=== PATIENT | female | born 1940 ===

== ENCOUNTER 2022-11-26 14:00 | Outpatient (REF) | payer SELFPAY ==
[2022-11-26 21:39] LABS: Bilirubin Negative (Negative); Blood Trace-lysed (Negative); Clarity Sl Cloudy (Clear); Glucose Negative (Negative); Ketones Trace mg/dL (Negative); Leukocyte Esterase Small (Negative); Nitrite Positive (Negative); Urobilinogen 0.2 mg/dL (Up to 0.2); pH 5.5 (5-8)
[2022-11-26 21:42] LABS: Bacteria Moderate HPF (Negative); C & S Indicated? Yes; Casts Negative LPF (Negative); Crystals Negative HPF (Negative); Epithelial Cells Rare HPF (Negative); Mucus Negative (Negative); RBC 0-2 HPF (0-2); WBC >50 HPF (0-5)
--- OUTSIDE RECORDS SUMMARY | 2022-11-27 15:41 | XMS_ITS | CCD ---
Author Name Unknown Address [address] [place] [address] [phone] Organization Unknown Address [address] [place] [address] [phone] Care Team Providers Care Boat Buffer Plastic Name Role Phone HEATHER ESTEVES Attending Physician [phone] HEATHER ESTEVES Rounding (Secondary) Physician [phone] Vital Signs Unknown or Not Available. Allergies Allergy Code Allergy Type Reaction Status CELEBREX {Clinical monitoring unavailable} 0 Drug allergy GI UPSET Active AMOXICILLIN 723 Drug allergy RASH Active FELDENE {Clinical monitoring unavailable} 0 Drug allergy RASH Active TAPE 0 Allergy to substance RASH Acti ve ARTHRITIS MEDS {Clinical mon itoring unavailable} 0 Drug allergy RED SKIN Active Procedures Unknown or Not Available. History of Immunizations Unknown or Not Available. Problems Problem Code Start Date Resolved Date Status Multiple subsegmental pulmon jose luis emboli without acute cor pulmonale [id number] Acti ve Fracture of right ankle, sequela [id number] Active Results Unknown or Not Available. Active Medications Medication Code Dose Units Frequency Route Modificatio n Start Date/Time Eliquis 30 Day DVT/PE Starter Pack 5MG Oral Tablet [id number] 1 TABLET DAILY ORAL 08/2022 10:52 Prescription Detail TAKE 1 TABLET ORAL D AILY hydroCHLOROthiazide 12.5MG Oral Capsule 12.5 MILLIGRAMS DAILY ORAL 09/03/2022 10:50 Prescription Detail TAKE 12.5 MILLIGRAMS ORAL DAILY Klor-Con M20 20MEQ Oral Tablet, Extended Release [id number] 1 TABLET DAILY ORAL 08/2022 10:50 Prescription Detail TAKE 1 TABLET ORAL D AILY Ocuvite PreserVision 113MG-0.4MG-7160IU- 1 Oral Tablet [id number] 1 EACH BEDTIME ORAL 2022 10:50 Prescription Detail TAKE 1 EACH ORAL BED TIME Medications Administered During Visit Unknown or Not Available. Encounters Encounter Diagnosis Diagnosis Code Start Date Other fracture of upper and lower end of right fibula, initial encounter for closed fracture [id number] 08/11/2022 Social History Smoking Status Code Start Date End Date Never smoker [id number] Patient Decision Aids Unknown or Not Available. Discharge Instructions You were admitted to [facility] on 08/11/2022 09:43 with a principal diagnosis of Other fracture of upper and lower end of right fibula, initial encounter for closed fracture You were discharged from [facility] on 08/11/2022 00:00 Should you have any questions prior to discharge, please contact a member of your healthcare team. If you have left the hospital and have any questions, please contact your primary care physician. Chief Complaint and Reason For Visit Unknown or Not Available. Function Status Unknown or Not Available. Plan of Care Unknown or Not Available. Referral/Transition of Care Unknown or Not Available.
--- OUTSIDE RECORDS SUMMARY | 2022-11-27 15:41 | XMS_ITS | CCD ---
Author Name Unknown Address [address] [place] [address] [id number] Organization Unknown Address [address] [place] [address] [id number] Care Team Providers Care Motor Vehicle Assembler Name Role Phone HEATHER ESTEVES Attending Physician [phone] HEATHER ESTEVES Rounding (Secondary) Physician [phone] Vital Signs Unknown or Not Available. Allergies [...] jose luis emboli without acute cor pulmonale [id number] Acti ve Fracture of right ankle, sequela 218320109 Active Results Unknown or Not Available. Active Medications Medication Code Dose Units Frequency Route Modificatio n Start Date/Time Eliquis 30 Day DVT/PE Starter Pack 5MG Oral Tablet [id number] 1 TABLET DAILY ORAL 08/2022 10:52 Prescription Detail TAKE 1 TABLET ORAL D AILY hydroCHLOROthiazide 12.5MG Oral Capsule 12.5 MILLIGRAMS DAILY ORAL 09/03/2022 10:50 Prescription Detail TAKE 12.5 MILLIGRAMS ORAL DAILY Klor-Con M20 20MEQ Oral Tablet, Extended Release [id number] 1 TABLET DAILY ORAL 08/2022 10:50 Prescription Detail TAKE 1 TABLET ORAL D AILY Ocuvite PreserVision 113MG-0.4MG-7160IU- 1 Oral Tablet 123522 1 EACH BEDTIME ORAL 2022 10:50 Prescription Detail TAKE 1 EACH ORAL BED TIME Medications Administered During Visit Unknown or Not Available. Encounters Encounter Diagnosis Diagnosis Code Start Date Other fracture of upper and lower end of right fibula, subsequent encounter for closed fracture with routine healing [id number] 08/23/2022 Social History Smoking Status Code Start Date End Date Never smoker [id number] Patient Decision Aids Unknown or Not Available. Discharge Instructions You were admitted to [facility] on 08/23/2022 15:02 with a principal diagnosis of Other fracture of upper and lower end of right fibula, subsequent encounter for closed fracture with routine healing You were discharged from [facility] on 08/23/2022 00:00 Should you have any questions prior [...]
--- OUTSIDE RECORDS SUMMARY | 2022-11-27 15:41 | XMS_ITS | CCD ---
Author Name Unknown Address [address] [place] [address] [phone] Organization Unknown Address [address] [place] [address] [phone] Care Team Providers Care Dynamo Repairer Name Role Phone IVIS RICHARDSON Attending Physician [phone] IVIS RICAHRDSON Er Physician [phone] HO Green Registered Nurse [phone] Vital Signs Vital Sign Value Unit Date/Time Recent/Initial ? BMI (Body Mass Index) 27.8 kg/m^2 08/09/2022 17: 50 Initial VS Weight Measured 152 lbs 08/09/2022 17:50 Ini tial VS Height 62 in 08/09/2022 17:50 Initial VS BSA (Body Surface Area) 1.74 m^2 08/09/2022 1 7:50 Initial VS BP Systolic 140 mmHg 08/09/2022 17:50 Initial VS BP Diastolic 96 mmHg 08/09/2022 17:50 Initia l VS Respiratory Rate 19 bpm 08/09/2022 17:50 In itial VS Heart Rate 71 bpm 08/09/2022 17:50 Initial VS O2 % BldC Oximetry 97 % 08/09/2022 17:50 Initial VS Body Temperature 36.5 degrees 08/09/2022 17:50 In itial VS Allergies Allergy Code Allergy Type Reaction Status [...] jose luis emboli without acute cor pulmonale [id number] Acti ve Fracture of right ankle, sequela 532499787 Active Results Unknown or Not Available. Active Medications Unknown or Not Available. Medications Administered During Visit Medication Dose Units Frequency Route Date/Time of Last Dose ACETAMINOPHEN TABLET: 325MG 650 MG X1 PO 08/09/2022 19:22 Encounters Encounter Diagnosis Diagnosis Code Start Date Unspecified fracture of shaf t of right fibula, initial encounter for closed fracture [id number] 08/09/2022 Social History Smoking Status Code Start Date End Date Never smoker [id number] Patient Decision Aids Unknown or Not Available. Discharge Instructions You were admitted to [facility] on 08/09/2022 17:44 with a principal diagnosis of Unspecified fracture of shaft of right fibula, initial encounter for closed fracture You were discharged from [facility] on 08/09/2022 19:26 Should you have any questions prior to discharge, please contact a member of your healthcare team. If you have left the hospital and have any questions, please contact your primary care physician. Chief Complaint and Reason For Visit Chief Complaint Date of Onset RIGHT FOOT INJURY Function Status Unknown or Not Available. Plan of Care Unknown or Not Available. Referral/Transition of Care Unknown or Not Available.
--- OUTSIDE RECORDS SUMMARY | 2022-11-27 15:41 | XMS_ITS | Continuity of Care Document ---
Author Name Unknown Address [address] [place] [address] [id number] Phone Organization Address [address] [place] [address] [phone] Phone Care Team Providers Care Auto Body Estimator Name Role Phone PCP, of Choice Primary Care Provider JUDE Naranjo Attending Provider [phone] Social History Smoking Status Unknown if ever smoked Additional Data Assigned Sex Female Relevant Diagnostic Tests and/or Laboratory Data Laboratory Results Test Date/Time Result Interpretation Reference Range Result Comment Performing Site SARS-CoV -2 RNA (RT-PCR) January 15, 2022 8:45am Negative Negative Note: This RT-PCR assay is intended for the in vitro qualitative detection of nucleic acid from SARS-CoV-2.This test has not been FDA cleared or approved. This test has been authorized by the FDA under an Emergency Use Authorization (EUA) for use by authorized laboratories. Fact sheets for providers can be found at: [employer]gov/MyFitnessPal/ 2631/downloadFac t sheets for patients can be found at: [employer].com/MyFitnessPal/ 1853/download [facility] [id number] [address] [address] SARS-CoV -2 RNA (RT-PCR) January 17, 2022 6:00am Negative Negative Note: This RT-PCR assay is intended for the in vitro qualitative detection of nucleic acid from SARS-CoV-2.This test has not been FDA cleared or approved. This test has been authorized by the FDA under an Emergency Use Authorization (EUA) for use by authorized laboratories. Fact sheets for providers can be found at: [employer]gov/MyFitnessPal/ 4148/downloadFac t sheets for patients can be found at: [employer].gov/MyFitnessPal/ 4526/downloadNew reagent in use as of 01/15/2021. [facility] [id number] [address] [place] [address] Insurance Providers Guarantor BISHOP FLORES Address [address] [facility] [address] Contact Info. Home Phone: Payer Policy Id Coverage Id Subscriber's Name Subscriber Id Effective Date Expiration Date MEDICARE PART A AND B COVERAGE [id number] BISHOP FLORES [id number] Encounters Encounter Location(s) Arrival/Admit Date Discharge/Depart Date Provider(s) Departed Referred [facility] January 15, 2022 11:16am January 15, 2022 11:17am Cassandra Rey NP Departed Referred [facility] January 17, 2022 11:01am January 17, 2022 11:02am Cassandra Rey BREAD MOLDER
--- OUTSIDE RECORDS SUMMARY | 2022-11-27 15:41 | XMS_ITS | Continuity of Care Document ---
Author Name Unknown Address [address] [place] [address] 618[address] Phone Organization [facility] Address [address] [place] [address] 12768 Phone Care Team Providers Care Real Estate Valuer Name Role Phone PCP, of Choice Primary Care Provider JUDE Naranjo Attending Provider [phone] Social History Smoking Status Unknown if ever [...] sheets for providers can be found at: fda.gov/media/91 2357/downloadFa t sheets for patients can be found at: fda.gov/media/06 5374/download [facility] [id number] [address] [address] Encounters Encounter Location(s) Arrival/Admit Date Discharge/Depart Date Provider(s) Departed Referred [facility] January 15, 2022 11:16am January 15, 2022 11:17am Cassandra Rey NP
--- OUTSIDE RECORDS SUMMARY | 2022-11-27 15:42 | XMS_ITS | CCD ---
Author Name Unknown Address [address] [place] [address] [phone] Organization Unknown Address [address] [place] [address] [phone] Care Team Providers Care Painting Instructor Name Role Phone JOANN YOUNG Attending Physician [phone] JOANN YOUNG Er Physician 2 [phone] VICENTA Pate Registered Nurse [phone] Vital Signs Vital Sign Value Unit Date/Time Recent/Initial ? BMI (Body Mass Index) 30.18 kg/m^2 01/10/2022 21: 11 Initial VS Weight Measured 165 lbs 01/10/2022 21:11 Ini tial VS Height 62 in 01/10/2022 21:11 Initial VS BSA (Body Surface Area) 1.81 m^2 01/10/2022 2 1:11 Initial VS BP Systolic 177 mmHg 01/10/2022 21:11 Initial VS BP Diastolic 81 mmHg 01/10/2022 21:11 Initia l VS Respiratory Rate 18 bpm 01/10/2022 21:11 In itial VS Heart Rate 75 bpm 01/10/2022 21:11 Initial VS O2 % BldC Oximetry 94 % 01/10/2022 21:11 Initial VS Body Temperature 35.2 degrees 01/10/2022 21:11 In itial VS Body Temperature 35.5 degrees 01/10/2022 22:[address] Recent VS Respiratory Rate 16 bpm 01/10/2022 23:[address] Recent VS O2 % BldC Oximetry 97 % 01/10/2022 23:30 Most Recent VS BP Systolic 147 mmHg 01/10/2022 23:45 Most Re cent VS BP Diastolic 83 mmHg 01/10/2022 23:45 Most R ecent VS Heart Rate 74 bpm 01/10/2022 23:45 Most Rec ent VS Allergies Allergy Code Allergy Type Reaction Status CELEBREX {Clinical monitoring unavailable} 0 Drug allergy GI UPSET Active AMOXICILLIN 723 Drug allergy RASH Active FELDENE {Clinical monitoring unavailable} 0 Drug allergy RASH Active ARTHRITIS MEDS {Clinical monitoring unavailable} 0 Drug allergy RED SKIN Active Procedures Unknown or Not Available. History of Immunizations Unknown or Not Available. Problems Problem Code Start Date Resolved Date Status Multiple subsegmental pulmon jose luis emboli without acute cor pulmonale [id number] Acti ve Fracture of right ankle, sequela 327812762 Active HTN 19846280 01/10/2022 Resolved Results COMPREHENSIVE METABOLIC PANE L (CMP) - Collect Date/Time: 01/10/2022 22:45 Test Name Code Test Result Test Units Test Ref Rang e GLUCOSE 2345-7 115 mg/dL L=70 H=116 BUN 3094-0 27 mg/dL L=6 H=25 CREATININE 2160-0 0.59 mg/dL L=0.51 H=0.95 SODIUM SERUM 2951-2 146 mmol/L L=136 H=145 POTASSIUM SERUM 2823-3 3.1 mmol/L L=3.4 H=5 .2 CHLORIDE SERUM 2075-0 106 mmol/L L=96 H=110 CARBON DIOXIDE (CO2) 2028-9 31 mmol/L L=22 H=34 ANION GAP 46976-3 9.4 mmol/L CALCIUM SERUM 95051-5 9.4 mg/dL L=8.2 H=10. 2 BILIRUBIN TOTAL 1975-2 0.5 mg/dL L=0.0 H=1 .3 ALK. PHOS. 6768-6 79 U/L L=46 H=116 SGOT (AST) 1920-8 18 U/L L=15 H=37 SGPT (ALT) 1742-6 23 U/L L=12 H=78 TOTAL PROTEIN 2885-2 7.3 gm/dL L=6.0 H=8.0 ALBUMIN 1751-7 4.2 gm/dL L=3.4 H=5.0 AGE 81 years eGFR (non-Afr.Amer.) 61091-5 98 mL/min eGFR (Afr-Azerbaijani) 96161-7 119 mL/min TROPONIN HIGH SENSITIVITY* - Collect Date/Time: 01/10/2022 22:49 Test Name Code Test Result Test Units Test Ref Rang e TROPONIN HS 8.0 pg/mL L=0.0 H=60.4 Specimen seq. RANDOM N/A CBC W/ DIFFERENTIAL* - [facility] ct Date/Time: 01/10/2022 22:45 Test Name Code Test Result Test Units Test Ref Rang e WBC 6690-2 8.79 th/cmm L=5.00 H=10.00 NEUT % 75.2 % L=40.0 H=80.0 LYMPH % 13.8 % L=10.0 H=50.0 MONO % 49592-0 7.5 % L=2.0 H=12.0 EOS % 2.5 % L=0.0 H=8.0 BASO % 0.7 % L=0.0 H=3.0 IG % 2514-8 0.3 % L=0.0 H=1.1 NRBC % 44424-1 0.0 % L=0.0 H=0.0 NEUT abs count 751-8 6.6 th/cmm L=1.6 H=8. 4 LYMPH abs count 731-0 1.2 th/cmm L=1.5 H=4 .0 MONO abs count 742-7 0.7 th/cmm L=0.2 H=1. 0 EOS abs count 711-2 0.2 th/cmm L=0.0 H=0.5 BASO abs count 704-7 0.1 th/cmm L=0.0 H=0. 2 IG abs count 74514-3 0.0 th/cmm L=0.0 H=0.1 NRBC abs count 91660-4 0.0 mil/cmm L=0.0 H=0. 0 RBC 789-8 5.08 mil/cmm L=3.90 H=5.40 HEMOGLOBIN 718-7 14.9 gm/dL L=12.0 H=16.0 HEMATOCRIT 4544-3 45 % L=37 H=47 MCV 787-2 88 fL L=82 H=92 MCH 785-6 29.3 pg L=27.0 H=31.0 MCHC 786-4 33.3 % L=32.0 H=36.0 RDW-SD 788-0 43.1 fL L=39.0 H=49.0 PLATELET COUNT 777-3 328 th/cmm L=150 H=45 0 DAVINA COVID FLU RSV GENEXPE RT - Collect Date/Time: 01/10/2022 23:11 Test Name Code Test Result Test Units Test Ref Nadine branch COVID 96790-7 NEGATIVE N/A Normal: Negati ve INFLUENZA A DNA 63053-6 NEGATIVE N/A Normal: N egative INFLUENZA B DNA 89228-3 NEGATIVE N/A Normal: N egative RSV DNA 75567-1 NEGATIVE N/A Normal: Negati ve Active Medications Medications Administered During Visit Medication Dose Units Frequency Route Date/Time of Last Dose POTASSIUM CHL TABLET: 20mEq 40 MEQ X1 PO 01/10/2022 23:42 Encounters Encounter Diagnosis Diagnosis Code Start Date Traumatic subarachnoid hemor rhage without loss of consciousness, initial encounter [id number] 01/10/2022 Social History Smoking Status Code Start Date End Date Never smoker [id number] Patient Decision Aids Unknown or Not Available. Discharge Instructions You were admitted to [facility] on 01/10/2022 20:56 with a principal diagnosis of Traumatic subarachnoid hemorrhage without loss of consciousness, initial encounter You had the following tests done:[facility] [employer] MobileFLAKITA FLU RSV GENEXPERTTROPONIN HIGH SENSITIVITY*CBC W/ DIFFERENTIAL*COMPREHENSIVE METABOLIC PANEL (CMP) You were discharged from [facility] on 01/11/2022 00:09 Should you have any questions prior to discharge, please contact a member of your healthcare team. If you have left the hospital and have any questions, please contact your primary care physician. Chief Complaint and Reason For Visit Chief Complaint Date of Onset LEG INJURY Function Status Unknown or Not Available. Plan of Care Unknown or Not Available. Referral/Transition of Care Unknown or Not Available.
--- OUTSIDE RECORDS SUMMARY | 2022-11-27 15:42 | XMS_ITS | CCD ---
Author Name Unknown Address [address] [place] [address] [phone] Organization Unknown Address [address] [place] [address] [phone] Care Team Providers Care Radiation Therapy Technologist Name Role Phone PHOEBE STRONG Attending Physician [phone] Vital Signs Unknown or Not Available. Allergies [...] jose luis emboli without acute cor pulmonale [id number] Acti ve Fracture of right ankle, sequela 071511436 Active Results DAVINA COVID RHEONIX* - [place] ect Date/Time: 03/15/2022 10:16 Test Name Code Test Result Test Units Test Ref Rang e Tier- 64591-6 PRE-OP N/A SARS COV2 RNA: 79014-6 NEGATIVE N/A REFERENCE RANGE: NEGAT Active Medications Medication Code Dose Units Frequency Route Modificatio n Start Date/Time Eliquis 30 Day DVT/PE Starter Pack 5MG Oral Tablet [id number] 1 TABLET DAILY ORAL 08/2022 10:52 Prescription Detail TAKE 1 TABLET ORAL D AILY hydroCHLOROthiazide 12.5MG Oral Capsule 12.5 MILLIGRAMS DAILY ORAL 09/03/2022 10:50 Prescription Detail TAKE 12.5 MILLIGRAMS ORAL DAILY Klor-Con M20 20MEQ Oral Tablet, Extended Release [id number] 1 TABLET DAILY ORAL 08/2022 10:50 Prescription Detail TAKE 1 TABLET ORAL D AILY Ocuvite PreserVision 113MG-0.4MG-7160IU- 1 Oral Tablet 149538 1 EACH BEDTIME ORAL 2022 10:50 Prescription Detail TAKE 1 EACH ORAL BED TIME Medications Administered During Visit Unknown or Not Available. Encounters Encounter Diagnosis Diagnosis Code Start Date Pre-surgery testing [id number] 03/15/2022 Social History Smoking Status Code Start Date End Date Never smoker 391063160 Patient Decision Aids Unknown or Not Available. Discharge Instructions You were admitted to [facility] on 03/15/2022 16:43 with a principal diagnosis of Encounter for preprocedural laboratory examination You had the following tests done:DAVINA LAWSON RHEONIX* You were discharged from [facility] on 03/15/2022 16:43 Should you have any questions prior to [...]
--- OUTSIDE RECORDS SUMMARY | 2022-11-27 15:42 | XMS_ITS | CCD ---
Author Name Unknown Address [address] [place] [address] [id number] Organization Unknown Address [address] [place], [place] [id number] Care Team Providers Care Biomedical Equipment Support Specialist Name Role Phone ASH ROSALES Attending Physician [phone] IVIS RICHARDSON Er Physician [phone] IVIS RICHARDSON Rounding (Secondary) Physicia n [phone] H., TIA Registered Nurse [phone] P., BEL X Registered Nurse [phone] M., TENNILLE X Registered Nurse [phone] Vital Signs Vital Sign Value Unit Date/Time Recent/Initial ? BMI (Body Mass Index) 28.35 kg/m^2 09/02/2022 22: 58 Initial VS Weight Measured 155 lbs 09/02/2022 22:58 Ini tial VS Height 62 in 09/02/2022 22:58 Initial VS BSA (Body Surface Area) 1.75 m^2 09/02/2022 2 2:58 Initial VS BP Systolic 160 mmHg 09/02/2022 22:58 Initial VS BP Diastolic 77 mmHg 09/02/2022 22:58 Initia l VS Respiratory Rate 18 bpm 09/02/2022 22:58 In itial VS Heart Rate 67 bpm 09/02/2022 22:58 Initial VS O2 % BldC Oximetry 98 % 09/02/2022 22:58 Initial VS Body Temperature 36.6 degrees 09/02/2022 22:58 In itial VS BMI (Body Mass Index) 30.37 kg/m^2 09/03/2022 12: 32 Most Recent VS Weight Measured 166.02 lbs 09/03/2022 12:32 Mos t Recent VS Height 62 in 09/03/2022 12:32 Most Rec ent VS BSA (Body Surface Area) 1.82 m^2 09/03/2022 1 2:32 Most Recent VS BP Systolic 140 mmHg 09/10/2022 07:17 Most Re cent VS BP Diastolic 88 mmHg 09/10/2022 07:17 Most R ecent VS Respiratory Rate 18 bpm 09/10/2022 07:[address] Recent VS Heart Rate 67 bpm 09/10/2022 07:17 Most Rec ent VS O2 % BldC Oximetry 98 % 09/10/2022 07:17 Most Recent VS Body Temperature 36 degrees 09/10/2022 07:[address] Recent VS Allergies Allergy Code Allergy Type Reaction [...] jose luis emboli without acute cor pulmonale [id number] Acti ve Fracture of right ankle, sequela [id number] Active Results BASIC METABOLIC PANEL (BMP) - Collect Date/Time: 09/09/2022 06:45 Test Name Code Test Result Test Units Test Ref Rang e GLUCOSE 2345-7 94 mg/dL L=70 H=116 BUN 3094-0 21 mg/dL L=6 H=25 CREATININE 2160-0 0.69 mg/dL L=0.51 H=0.95 SODIUM SERUM 2951-2 140 mmol/L L=136 H=145 POTASSIUM SERUM 2823-3 3.6 mmol/L L=3.4 H=5 .2 CHLORIDE SERUM 2075-0 101 mmol/L L=96 H=110 CARBON DIOXIDE (CO2) 2028-9 28 mmol/L L=22 H=34 ANION GAP 64708-6 10.9 mmol/L CALCIUM SERUM 92509-5 9.7 mg/dL L=8.2 H=10. 2 AGE 82 years eGFR (non-Afr.Amer.) 34154-2 82 mL/min eGFR (Afr-Tunisian) 71250-1 99 mL/min BASIC METABOLIC PANEL (BMP) - Collect Date/Time: 09/04/2022 06:28 Test Name Code Test Result Test Units Test Ref Rang e GLUCOSE 2345-7 104 mg/dL L=70 H=116 BUN 3094-0 18 mg/dL L=6 H=25 CREATININE 2160-0 0.53 mg/dL L=0.51 H=0.95 SODIUM SERUM 2951-2 143 mmol/L L=136 H=145 POTASSIUM SERUM 2823-3 4.1 mmol/L L=3.4 H=5 .2 CHLORIDE SERUM 2075-0 106 mmol/L L=96 H=110 CARBON DIOXIDE (CO2) 2028-9 21 mmol/L L=22 H=34 ANION GAP 28074-1 16.1 mmol/L CALCIUM SERUM 81971-1 9.9 mg/dL L=8.2 H=10. 2 AGE 82 years eGFR (non-Afr.Amer.) 17815-6 111 mL/min eGFR (Afr-Tunisian) 32044-9 >120 mL/min BASIC METABOLIC PANEL (BMP) - Collect Date/Time: 09/03/2022 02:07 Test Name Code Test Result Test Units Test Ref Rang e GLUCOSE 2345-7 105 mg/dL L=70 H=116 BUN 3094-0 16 mg/dL L=6 H=25 CREATININE 2160-0 0.73 mg/dL L=0.51 H=0.95 SODIUM SERUM 2951-2 141 mmol/L L=136 H=145 POTASSIUM SERUM 2823-3 3.2 mmol/L L=3.4 H=5 .2 CHLORIDE SERUM 2075-0 102 mmol/L L=96 H=110 CARBON DIOXIDE (CO2) 2028-9 26 mmol/L L=22 H=34 ANION GAP 33481-1 12.8 mmol/L CALCIUM SERUM 36033-6 9.6 mg/dL L=8.2 H=10. 2 AGE 82 years eGFR (non-Afr.Amer.) 56813-2 77 mL/min eGFR (Afr-Tunisian) 87925-3 93 mL/min TROPONIN HIGH SENSITIVITY* - Collect Date/Time: 09/03/2022 02:07 Test Name Code Test Result Test Units Test Ref Rang e TROPONIN HS 8.7 pg/mL L=0.0 H=60.4 Specimen seq. ADM. N/A CBC W/ DIFFERENTIAL* - Colle ct Date/Time: 09/03/2022 02:07 Test Name Code Test Result Test Units Test Ref Rang e WBC 6690-2 7.40 th/cmm L=5.00 H=10.00 NEUT % 66.0 % L=40.0 H=80.0 LYMPH % 21.4 % L=10.0 H=50.0 MONO % 13269-7 6.8 % L=2.0 H=12.0 EOS % 4.7 % L=0.0 H=8.0 BASO % 0.8 % L=0.0 H=3.0 IG % 2514-8 0.3 % L=0.0 H=1.1 NRBC % 32076-1 0.0 % L=0.0 H=0.0 NEUT abs count 751-8 4.9 th/cmm L=1.6 H=8. 4 LYMPH abs count 731-0 1.6 th/cmm L=1.5 H=4 .0 MONO abs count 742-7 0.5 th/cmm L=0.2 H=1. 0 EOS abs count 711-2 0.4 th/cmm L=0.0 H=0.5 BASO abs count 704-7 0.1 th/cmm L=0.0 H=0. 2 IG abs count 71350-2 0.0 th/cmm L=0.0 H=0.1 NRBC abs count 44461-1 0.0 mil/cmm L=0.0 H=0. 0 RBC 789-8 4.95 mil/cmm L=3.90 H=5.40 HEMOGLOBIN 718-7 14.5 gm/dL L=12.0 H=16.0 HEMATOCRIT 4544-3 44 % L=37 H=47 MCV 787-2 89 fL L=82 H=92 MCH 785-6 29.3 pg L=27.0 H=31.0 MCHC 786-4 33.1 % L=32.0 H=36.0 RDW-SD 788-0 43.1 fL L=39.0 H=49.0 PLATELET COUNT 777-3 339 th/cmm L=150 H=45 0 D-DIMER - Collect Date/Time: 09/03/2022 02:07 Test Name Code Test Result Test Units Test Ref Rang e D-DIMER 36855-6 1.11 mg/L L=0.19 H=0.50 URINALYSIS WITH REFLEX CULT IF POSITIVE* - Collect Date/Time: 09/05/2022 06:44 Test Name Code Test Result Test Units Test Ref Rang e COLLECTION MODE: 15283-8 VOID N/A Color 5778-6 YELLOW N/A yellow Appearance 5767-9 CLEAR N/A clear Glucose urine 41239-4 NEGATIVE N/A negative mg /dl Bilirubin 5770-3 NEGATIVE N/A negative Ketones 2514-8 NEGATIVE N/A negative mg/dl Spec gravity 5811-5 1.025 N/A 1.003 - 1.03 0 pH urine 2756-5 6.0 N/A 5.0 - 7.0 Protein 35993-6 NEGATIVE N/A negative mg/dl Urobilinogen 47566-4 1.0 N/A <or= 1 EU/dl Nitrite. 5802-4 NEGATIVE N/A negative Blood 5794-3 NEGATIVE N/A negative Leukocytes. NEGATIVE N/A negative MICROSCOPIC NOT INDICAT N/A Active Medications Medication Code Dose Units Frequency Route Modificatio n Start Date/Time Eliquis 30 Day DVT/PE Starter Pack 5MG Oral Tablet 1438052 1 TABLET DAILY ORAL 08/2022 10:52 Prescription Detail TAKE 1 TABLET ORAL D AILY hydroCHLOROthiazide 12.5MG Oral Capsule 12.5 MILLIGRAMS DAILY ORAL 09/03/2022 10:50 Prescription Detail TAKE 12.5 MILLIGRAMS ORAL DAILY Klor-Con M20 20MEQ Oral Tablet, Extended Release [id number] 1 TABLET DAILY ORAL 08/2022 10:50 Prescription Detail TAKE 1 TABLET ORAL D AILY Ocuvite PreserVision 113MG-0.4MG-7160IU- 1 Oral Tablet 029777 1 EACH BEDTIME ORAL 2022 10:50 Prescription Detail TAKE 1 EACH ORAL BED TIME Medications Administered During Visit Medication Dose Units Frequency Route Date/Time of Last Dose HYDROcodone/ACETAMINOPHEN TA B: 5/325MG 1 TAB X1 PO 09/02/2022 23:5 5 ACETAMINOPHEN INJ IVPB: 1000MG/100ML 1000 MG X1 IVPB 09/03/2022 02:4 1 FentaNYL INJ SYRINGE: 50MCG/ML 25 MCG X1 IVP 09/03/2022 02:41 OxyCODONE TABLET no apap add ed: 5mg 5 MG X1 PO 09/03/2022 05:2 4 POTASSIUM CHL TABLET: 20mEq 40 MEQ X1 PO 09/03/2022 06:06 ACETAMINOPHEN INJ IVPB: 1000MG/100ML 1000 MG X1 IVPB 09/03/2022 07:5 2 APIXABAN TAB: 5MG 10 MG X1 PO 08:55 hydroCHLOROthiazide TABLET: 25MG 12.5 MG X1 PO 09/03/2022 09:59 ACETAMINOPHEN TABLET: 325MG 975 MG TID PO 09/10/2022 08:36 SENNA CONC TABLET: 8.6MG 8.6 MG PRN DAILY PO 09/10/2022 08:36 MILK OF MAGNESIA SUSP UD: 2400MG/30ML 30 ML PRN DAILY PO 09/10/2022 08:4 0 APIXABAN TAB: 5MG 10 MG BID PO 08:36 ACETAMINOPHEN TABLET: 325MG 975 MG X1 PO 09/03/2022 12:56 POTASSIUM CHL TABLET: 20mEq 20 MEQ TID WITH ROXANA D PO 09/03/2022 17:06 TraMADol TABLET: 50MG 50 MG PRN Q4H PO 09/10/2022 08:36 PredniSONE TABLET: 20MG 20 MG BID PO 09/08/2022 08:54 PredniSONE TABLET: 5MG 15 MG BID WITH FOOD PO 09/09/2022 08:47 hydroCHLOROthiazide TABLET: 25MG 12.5 MG DAILY PO 09/10/2022 08:36 OxyCODONE TABLET no apap add ed: 5mg 2.5 MG PRN Q4H PO 09/10/2022 10:3 9 PredniSONE TABLET: 10MG 10 MG BID WITH FOOD PO 09/10/2022 08:36 DIAZEPAM TABLET: 2MG 1 MG PRN Q4H PO 09/09/2022 20:44 FLEET ENEMA 133ML 133 ML X1 MS 09:54 Encounters Encounter Diagnosis Diagnosis Code Start Date Multiple subsegmental pulmon jose luis emboli without acute cor pulmonale [id number] 09/05/2022 Social History Smoking Status Code Start Date End Date Never smoker [id number] Patient Decision Aids Unknown or Not Available. Discharge Instructions You were admitted to [facility] on 09/05/2022 13:34 with a principal diagnosis of Multiple subsegmental pulmonary emboli without acute cor pulmonale You had the following tests done:BASIC METABOLIC PANEL (BMP)URINALYSIS WITH REFLEX CULT IF POSITIVE*BASIC METABOLIC PANEL (BMP)BASIC METABOLIC PANEL (BMP)CBC W/ DIFFERENTIAL*D-DIMERTROPONIN HIGH SENSITIVITY* You were discharged from [facility] on 09/10/2022 11:25 Should you have any questions prior to discharge, please contact a member of your healthcare team. If you have left the hospital and have any questions, please contact your primary care physician. Chief Complaint and Reason For Visit Chief Complaint Date of Onset PULMINARY EMBOLI WEALNESS RIGHT ANKLE FR ACTURE 09/03/2022 Function Status Unknown or Not Available. Plan of Care Unknown or Not Available. Referral/Transition of Care Unknown or Not Available.
--- OUTSIDE RECORDS SUMMARY | 2022-11-27 15:42 | XMS_ITS | CCD ---
Author Name Unknown Address [address] [place] [address] [phone] Organization Unknown Address [address] [place] [address] [phone] Care Team Providers Care Captain Waiter/Waitress Name Role Phone LAWRENCE STEWART Attending Physician [phone] LAWRENCE STEWART Rounding (Secondary) Physician [phone] Vital Signs Unknown or Not Available. Allergies [...] jose luis emboli without acute cor pulmonale [id number] Acti ve Fracture of right ankle, sequela 482771414 Active Results Unknown or Not Available. Active Medications Medication Code Dose Units Frequency Route Modificatio n Start Date/Time Eliquis 30 Day DVT/PE Starter Pack 5MG Oral Tablet [id number] 1 TABLET DAILY ORAL 08/2022 10:52 Prescription Detail TAKE 1 TABLET ORAL D AILY hydroCHLOROthiazide 12.5MG Oral Capsule 12.5 MILLIGRAMS DAILY ORAL 09/03/2022 10:50 Prescription Detail TAKE 12.5 MILLIGRAMS ORAL DAILY Klor-Con M20 20MEQ Oral Tablet, Extended Release [id number] 1 TABLET DAILY ORAL 08/2022 10:50 Prescription Detail TAKE 1 TABLET ORAL D AILY Ocuvite PreserVision 113MG-0.4MG-7160IU- 1 Oral Tablet [id number] 1 EACH BEDTIME ORAL 2022 10:50 Prescription Detail TAKE 1 EACH ORAL BED TIME Medications Administered During Visit Unknown or Not Available. Encounters Encounter Diagnosis Diagnosis Code Start Date Other fracture of upper and lower end of right fibula, subsequent encounter for closed fracture with routine healing [id number] 11/11/2022 Social History Smoking Status Code Start Date End Date Never smoker [id number] Patient Decision Aids Unknown or Not Available. Discharge Instructions You were admitted to [facility] on 11/11/2022 14:03 with a principal diagnosis of Other fracture of upper and lower end of right fibula, subsequent encounter for closed fracture with routine healing You were discharged from [facility] on 11/11/2022 14:03 Should you have any questions prior to [...]
--- OUTSIDE RECORDS SUMMARY | 2022-11-27 15:42 | XMS_ITS | CCD ---
Author Name Unknown Address [address] [place] [address] [phone] Organization Unknown Address [address] [place] [address] [phone] Care Team Providers Care Hardware Installer Name Role Phone ASH ROSALES Attending Physician [phone] Vital Signs Unknown or Not Available. Allergies [...] jose luis emboli without acute cor pulmonale [id number] Acti ve Fracture of right ankle, sequela 851279329 Active Results Unknown or Not Available. Active Medications Medication Code Dose Units Frequency Route Modificatio n Start Date/Time Eliquis 30 Day DVT/PE Starter Pack 5MG Oral Tablet [id number] 1 TABLET DAILY ORAL 08/2022 10:52 Prescription Detail TAKE 1 TABLET ORAL D AILY hydroCHLOROthiazide 12.5MG Oral Capsule 12.5 MILLIGRAMS DAILY ORAL 09/03/2022 10:50 Prescription Detail TAKE 12.5 MILLIGRAMS ORAL DAILY Klor-Con M20 20MEQ Oral Tablet, Extended Release [id number] 1 TABLET DAILY ORAL 08/2022 10:50 Prescription Detail TAKE 1 TABLET ORAL D AILY Ocuvite PreserVision 113MG-0.4MG-7160IU- 1 Oral Tablet 042506 1 EACH BEDTIME ORAL 2022 10:50 Prescription Detail TAKE 1 EACH ORAL BED TIME Medications Administered During Visit Unknown or Not Available. Encounters Encounter Diagnosis Diagnosis Code Start Date Multiple subsegmental pulmon jose luis emboli without acute cor pulmonale [id number] 09/03/2022 Social History Smoking Status Code Start Date End Date Never smoker [id number] Patient Decision Aids Unknown or Not Available. Discharge Instructions You were admitted to [facility] on 09/03/2022 10:45 with a principal diagnosis of Multiple subsegmental pulmonary emboli without acute cor pulmonale You were discharged from [facility] on 09/05/2022 13:34 Should you have any questions prior to [...]
--- OUTSIDE RECORDS SUMMARY | 2022-11-27 15:42 | XMS_ITS | CCD ---
Author Name Unknown Address [address] [place] [address] [phone] Organization Unknown Address [address] [place] [address] [phone] Care Team Providers Care Submarine Element Coordinator Name Role Phone ASH ROSALES Attending Physician [phone] Vital Signs Unknown or Not Available. [...] jose luis emboli without acute cor pulmonale [id number] Acti ve Fracture of right ankle, sequela 094540959 Active Results Unknown or Not Available. Active Medications Medication Code Dose Units Frequency Route Modificatio n Start Date/Time Eliquis 30 Day DVT/PE Starter Pack 5MG Oral Tablet [id number] 1 TABLET DAILY ORAL 08/2022 10:52 Prescription Detail TAKE 1 TABLET ORAL D AILY hydroCHLOROthiazide 12.5MG Oral Capsule 12.5 MILLIGRAMS DAILY ORAL 09/03/2022 10:50 Prescription Detail TAKE 12.5 MILLIGRAMS ORAL DAILY Klor-Con M20 20MEQ Oral Tablet, Extended Release [id number] 1 TABLET DAILY ORAL 08/2022 10:50 Prescription Detail TAKE 1 TABLET ORAL D AILY Ocuvite PreserVision 113MG-0.4MG-7160IU- 1 Oral Tablet 271258 1 EACH BEDTIME ORAL 2022 10:50 Prescription Detail TAKE 1 EACH ORAL BED TIME Medications Administered During Visit Unknown or Not Available. Encounters Encounter Diagnosis Diagnosis Code Start Date Pulmonary embolism [id number] 09/05/2022 Social History Smoking Status Code Start Date End Date Never smoker [id number] Patient Decision Aids Unknown or Not Available. Discharge Instructions You were admitted to [facility] on 09/05/2022 00:27 with a principal diagnosis of Multiple subsegmental pulmonary emboli without acute cor pulmonale You were discharged from [facility] on 09/10/2022 00:27 Should you have any questions prior to [...]
--- OUTSIDE RECORDS SUMMARY | 2022-11-27 15:42 | XMS_ITS | CCD ---
Author Name Unknown Address [address] [place] [address] [phone] Organization Unknown Address [address] [place] [address] [phone] Care Team Providers Care Beef Grader Name Role Phone PHOEBE STRONG Attending Physician [phone] Vital Signs Unknown or Not Available. Allergies Allergy Code Allergy Type Reaction Status CELEBREX {Clinical monitoring unavailable} 0 Drug allergy GI UPSET Active AMOXICILLIN 723 Drug allergy RASH Active FELDENE {Clinical monitoring unavailable} 0 Drug allergy RASH Active TAPE 0 Allergy to substance RASH Acti ve ARTHRITIS MEDS {Clinical mon itoring unavailable} 0 Drug allergy RED SKIN Active Procedures Procedure Code Procedure Type Date Extracapsular Cataract Remov al w/Insert IOL Prosthesis Manual/Mech w/o Endoscopic Cyclophotocoagulat 37633 CPT 03/31/2022 Anesthesia, Proc On Eye; Lens Surgery 42242 CPT 03/31/2022 History of Immunizations Unknown or Not Available. Problems Problem Code Start Date Resolved Date Status Multiple subsegmental pulmon jose luis emboli without acute cor pulmonale [id number] Acti ve Fracture of right ankle, sequela 040133778 Active Results Unknown or Not Available. Active Medications Medications Administered During Visit Unknown or Not Available. Encounters Encounter Diagnosis Diagnosis Code Start Date Unspecified age-related cataract H259 03/31/2022 Social History Smoking Status Code Start Date End Date Never smoker [id number] Patient Decision Aids Unknown or Not Available. Discharge Instructions You were admitted to [facility] on 03/31/2022 06:58 with a principal diagnosis of Unspecified age-related cataract You had the following procedures done:Extracapsular Cataract Removal w/Insert IOL Prosthesis Manual/Mech w/o Endoscopic CyclophotocoagulatAnesthesia, Proc On Eye; Lens Surgery You were discharged from [facility] on 03/31/2022 08:57 Should you have any questions prior to [...]
--- OUTSIDE RECORDS SUMMARY | 2022-11-27 15:42 | XMS_ITS | CCD ---
Author Name Unknown Address [address] [place] [address] [phone] Organization Unknown Address [address] [place] [address] [phone] Care Team Providers Care Emt P Name Role Phone PHOEBE STRONG Attending Physician [phone] Vital Signs Vital Sign Value Unit Date/Time Recent/Initial ? BMI (Body Mass Index) 27.9 kg/m^2 03/10/2022 10: 28 Initial VS Weight Measured 155 lbs 03/10/2022 10:28 Ini tial VS Height 62.5 in 03/10/2022 10:28 Initial VS BSA (Body Surface Area) 1.76 m^2 03/10/2022 1 0:28 Initial VS Allergies Allergy Code Allergy Type Reaction [...] w/Insert IOL Prosthesis Manual/Mech w/o Endoscopic Cyclophotocoagulat 24169 CPT 03/17/2022 Anesthesia, Proc On Eye; Lens Surgery 28931 CPT 03/17/2022 History of Immunizations Unknown or Not Available. Problems Problem Code Start Date Resolved Date Status Multiple subsegmental pulmon jose luis emboli without acute cor pulmonale [id number] Acti ve Fracture of right ankle, sequela 260163768 Active Results Unknown or Not Available. Active Medications Medications Administered During Visit Unknown or Not Available. Encounters Encounter Diagnosis Diagnosis Code Start Date Unspecified age-related cataract H259 03/17/2022 Social History Smoking Status Code Start Date End Date Never smoker [id number] Patient Decision Aids Unknown or Not Available. Discharge Instructions You were admitted to [facility] on 03/17/2022 06:51 with a principal diagnosis of Unspecified age-related cataract You had the following procedures done:Extracapsular Cataract Removal w/Insert IOL Prosthesis Manual/Mech w/o Endoscopic CyclophotocoagulatAnesthesia, Proc On Eye; Lens Surgery You were discharged from [facility] on 03/17/2022 09:09 Should you have any questions prior to [...]
== END 2022-11-26 14:01 | disposition home or self-care (01) ==
LOC: LBN 14:00
PROVIDERS: PCP Family Medicine; Visit Provider Family Medicine
DX: N39.0 Urinary tract infection, site not specified (principal)
CPT/HCPCS: 87077; 81003; 81015; 87086; 87186